=== PATIENT | female | born 1965 | race Caucasian/White ===

== ENCOUNTER 2018-12-17 08:32 | Day surgery (SDC) | payer OTHER, MEDICAID ==
[2018-12-17] MEDS ORDERED: MIDAZOLAM 1 MG/ML 2 ML INJ ×3 (11:39)
[2018-12-17] MEDS ORDERED: MEPERIDINE 50 MG INJ (12:34)
[2018-12-17] MEDS ORDERED: FENTAnyl 50 MCG/ML VIAL (12:38)
== END 2018-12-17 13:38 | disposition home or self-care (01) ==
LOC: GIL 08:32
DX: Z12.11 Encounter for screening for malignant neoplasm of colon (principal); K64.4 Residual hemorrhoidal skin tags; R10.13 Epigastric pain
CPT/HCPCS: 43239; 84703; 88305